=== PATIENT | male | born 1980 | race Caucasian/White ===

== ENCOUNTER 2024-04-09 07:20 | Inpatient (IN) | payer OTHER ==
[~2024-04-09] VITALS: Ht 170.2 cm; Wt 101.2 kg
[2024-04-09] MEDS: normal saline 1000ML IV soln IVB ONE ×2 (09:19→10:46)
[2024-04-09 10:42] LABS: BASOPHILS # (AUTO) 0.1 X10'3 (0-0.2); BASOPHILS % (AUTO) 0.4 % (0-1); EOSINOPHILS % (AUTO) 0 % (0-6); HEMATOCRIT 40.1 % (42.0-52.0); HEMOGLOBIN 13.2 g/dl (14.0-17.9); LYMPHOCYTES # (AUTO) 1.6 X10'3 (1.1-4.8); LYMPHOCYTES % (AUTO) 10.1 % (21-51); MEAN CORPUSCULAR HEMOGLOBIN 26.8 PG (27.0-31.0); MEAN CORPUSCULAR VOLUME 81.2 FL (78-98); MEAN PLATELET VOLUME 8.9 FL (7.4-10.4); MONOCYTES # (AUTO) 1.2 X10'3 (0-0.9); NEUTROPHILS # (AUTO) 12.6 X10'3 (1.8-7.7); NEUTROPHILS % (AUTO) 81.5 % (42-75); PLATELET COUNT 117 X10'3 (140-440); RED BLOOD COUNT 4.94 X10'6 (4.70-6.10); RED CELL DISTRIBUTION WIDTH 19.9 % (11.5-14.5); WHITE BLOOD COUNT 15.5 X10'3 (4.5-11.0)
[2024-04-09] MEDS: cloNIDine 0.1 mg tablet PO ONE (10:47)
[2024-04-09] MEDS: chlordiazePOXIDE 25mg capsule PO ONE (10:47)
[2024-04-09] MEDS: magnesium oxide 400mg tablet PO ONE (10:47)
[2024-04-09 10:59] LABS: ALANINE AMINOTRANSFERASE 143 U/L (12-78); ALBUMIN 2.8 G/DL (3.4-5.0); ALBUMIN/GLOBULIN RATIO 0.6 (1.1-1.5); ALKALINE PHOSPHATASE 152 IU/L (46-116); ANION GAP 18 (8-16); ASPARTATE AMINO TRANSFERASE 241 U/L (10-37); BILIRUBIN,DIRECT 0.5 MG/DL (0-0.3); BILIRUBIN,TOTAL 1.1 MG/DL (0.1-1.0); BLOOD UREA NITROGEN 19 MG/DL (7-18); BUN/CREATININE RATIO 17.3 (10.0-20.0); CALCIUM 7.8 MG/DL (8.5-10.1); CHLORIDE 100 MMOL/L (99-107); ETHANOL 141 MG/DL (<10); GLUCOSE 97 MG/DL (70-104); LIPASE 288 U/L (16-77); MAGNESIUM 2.1 MG/DL (1.5-2.4); POTASSIUM 3.5 MMOL/L (3.5-5.1); SODIUM 138 MMOL/L (135-145); TOTAL CARBON DIOXIDE 20.2 MMOL/L (24-32); TOTAL PROTEIN 7.6 G/DL (6.4-8.2); eCRCL 80 ML/MIN; eGFR 73 ML/MIN
[2024-04-09] MEDS: D5-1/2NS w/20 mEq potassium per 1000ml IV ONE (12:10)
[2024-04-09] MEDS ORDERED: potassium Cl 40MEQ/1/2NS 520ml 520 ML IV PRN (13:05)
[2024-04-09] MEDS ORDERED: magnesium sulf-water 2g/50mL 50 ML IV PRN (13:05)
[2024-04-09] MEDS ORDERED: magnesium Cl slow-release 64mg tablet PO PRN (13:05)
[2024-04-09] MEDS: normal saline 1000ml 1,000 ML IV SCH (13:05)
[2024-04-09] MEDS ORDERED: magnesium sulf-water 4G/100mL 100 ML IV PRN (13:05)
[2024-04-09] MEDS ORDERED: ondansetron/PF 4mg/2ml inj IV PRN (13:05)
[2024-04-09] MEDS ORDERED: magnesium hydroxide 30ml (MOM) UD suspension PO PRN (13:05)
[2024-04-09] MEDS ORDERED: acetaminophen 325mg tablet PO PRN (13:05)
[2024-04-09] MEDS ORDERED: mag hydrox/Alum hydrox/simeth 30ml oral suspension PO PRN (13:05)
[2024-04-09] MEDS ORDERED: haloperidol lactate 5mg/ml inj IM PRN (13:15)
[2024-04-09] MEDS ORDERED: haloperidol 5mg tablet PO PRN (13:15)
[2024-04-09 13:34] LABS: APTT 27 SECONDS (22-32); PROTHROMBIN TIME 10.2 SECONDS (9.0-12.0)
[2024-04-09 13:41] LABS: PHOSPHORUS 1.5 MG/DL (2.3-4.5); PRO BRAIN NATRIURETIC PEPTIDE 240 PG/ML (0-125)
[2024-04-09] MEDS: K and/or MAG REPLACEMENT MC SCH (14:09)
[2024-04-09 17:00] VITALS: RESP 16; O2SAT 96
[2024-04-09] MEDS: pantoprazole 40mg Tablet.DR PO SCH (17:03)
[2024-04-09] MEDS ORDERED: NO HOME MEDS (17:13)
[2024-04-09] MEDS: LORazepam 2 mg/ml vial IV PRN (17:15)
[2024-04-09 18:30] VITALS: BP 129/94; PULSE 113; RESP 18; TEMP 98.1; O2SAT 96
[2024-04-09] MEDS: thiamine 100mg/ml 2ml inj. IV SCH (21:37)
[2024-04-10 04:05] LABS: BASOPHILS % (AUTO) 0.2 % (0-1); EOSINOPHILS % (AUTO) 0.3 % (0-6); HEMATOCRIT 34.4 % (42.0-52.0); HEMOGLOBIN 11.2 g/dl (14.0-17.9); LYMPHOCYTES # (AUTO) 1.2 X10'3 (1.1-4.8); LYMPHOCYTES % (AUTO) 10.1 % (21-51); MEAN CORPUSCULAR HEMOGLOBIN 26.4 PG (27.0-31.0); MEAN CORPUSCULAR HGB CONC 32.4 g/dL (33.0-36.5); MEAN CORPUSCULAR VOLUME 81.4 FL (78-98); MEAN PLATELET VOLUME 9.2 FL (7.4-10.4); MONOCYTES # (AUTO) 0.8 X10'3 (0-0.9); MONOCYTES % (AUTO) 6.4 % (2-12); NEUTROPHILS # (AUTO) 9.8 X10'3 (1.8-7.7); PLATELET COUNT 85 X10'3 (140-440); RED BLOOD COUNT 4.23 X10'6 (4.70-6.10); RED CELL DISTRIBUTION WIDTH 19.5 % (11.5-14.5); WHITE BLOOD COUNT 11.8 X10'3 (4.5-11.0)
[2024-04-10 04:21] LABS: ANISOCYTOSIS 2+; ELLIPTOCYTES FEW; PLATELET ESTIMATE DECREASED
[2024-04-10 04:29] LABS: ALANINE AMINOTRANSFERASE 101 U/L (12-78); ALBUMIN 2.3 G/DL (3.4-5.0); ALBUMIN/GLOBULIN RATIO 0.6 (1.1-1.5); ALKALINE PHOSPHATASE 131 IU/L (46-116); AMYLASE 313 U/L (25-115); ANION GAP 10 (8-16); ASPARTATE AMINO TRANSFERASE 156 U/L (10-37); BILIRUBIN,TOTAL 0.8 MG/DL (0.1-1.0); BLOOD UREA NITROGEN 13 MG/DL (7-18); BUN/CREATININE RATIO 15.1 (10.0-20.0); CALCIUM 7.5 MG/DL (8.5-10.1); CHLORIDE 104 MMOL/L (99-107); CREATININE 0.86 MG/DL (0.60-1.10); GLUCOSE 91 MG/DL (70-104); MAGNESIUM 2.2 MG/DL (1.5-2.4); POTASSIUM 3.4 MMOL/L (3.5-5.1); SODIUM 137 MMOL/L (135-145); TOTAL CARBON DIOXIDE 23.3 MMOL/L (24-32); eCRCL 102 ML/MIN; eGFR > 90 ML/MIN
[2024-04-10 04:50] LABS: LIPASE > 375 U/L (16-77)
[2024-04-10 04:54] LABS: PHOSPHORUS 1.1 MG/DL (2.3-4.5)
[2024-04-10] MEDS: potassium phosphate inj 30 MMOL in normal saline 250ml IV soln 250 ML IV ONE (05:00)
[2024-04-10 06:00] VITALS: BP 157/95; PULSE 95; RESP 18; TEMP 98.8; O2SAT 99
[2024-04-10] MEDS: folic acid 1mg/0.2ml inj IV SCH (07:48)
[2024-04-10] MEDS: multivitamins, therapeutics tablet PO SCH (07:48)
[2024-04-10 08:00] VITALS: RESP 18; O2SAT 99
[2024-04-10] MEDS ORDERED: chlordiazePOXIDE 5mg capsule PO PRN (12:05)
[2024-04-10] MEDS: normal saline 1000ml 1,000 ML IVB ONE (13:26)
[2024-04-10] MEDS: dextrose 5%-normal saline 1,000 ML IV SCH (13:49)
[2024-04-10] MEDS: chlordiazePOXIDE 5mg capsule PO SCH (13:49)
[2024-04-10] MEDS ORDERED: iohexol 300mg/ml 100ml inj. ONE (13:54)
[2024-04-10] MEDS ORDERED: sodium phosphate inj. 30 MMOL in dextrose 5%-water 250 ML IV PRN (14:25)
[2024-04-10] MEDS ORDERED: sodium phosphate inj. 15 MMOL in dextrose 5%-water 250 ML IV PRN (14:25)
[2024-04-10] MEDS ORDERED: Neutra Phos packet PO PRN (14:25)
[2024-04-10] MEDS: normal saline 1000ml 1,000 ML IV ONE (15:37)
[2024-04-10 18:00] VITALS: BP 140/92; PULSE 99; RESP 18; TEMP 99.7; O2SAT 96
[2024-04-10 20:20] VITALS: RESP 18
[2024-04-10] MEDS ORDERED: diatr meglu/diatrizoate 30ml oral sol.-(3 dose) bottle PO SCH (21:00)
[2024-04-10 22:00] VITALS: BP 149/107; PULSE 98; RESP 18; TEMP 98.8; O2SAT 98
[2024-04-11] VITALS (7 sets, daily range): BP systolic 93–158; BP diastolic 52–109; PULSE 67–100; RESP 13–20; TEMP 97.4–98.3; O2SAT 95–98
[2024-04-11 04:32] LABS: BASOPHILS % (AUTO) 0.2 % (0-1); EOSINOPHILS # (AUTO) 0.1 X10'3 (0-0.9); EOSINOPHILS % (AUTO) 1.4 % (0-6); HEMATOCRIT 36.2 % (42.0-52.0); HEMOGLOBIN 11.9 g/dl (14.0-17.9); LYMPHOCYTES # (AUTO) 1.3 X10'3 (1.1-4.8); LYMPHOCYTES % (AUTO) 14.8 % (21-51); MEAN CORPUSCULAR HGB CONC 32.8 g/dL (33.0-36.5); MEAN CORPUSCULAR VOLUME 82.2 FL (78-98); MEAN PLATELET VOLUME 9.4 FL (7.4-10.4); MONOCYTES # (AUTO) 0.6 X10'3 (0-0.9); MONOCYTES % (AUTO) 6.7 % (2-12); NEUTROPHILS # (AUTO) 6.9 X10'3 (1.8-7.7); NEUTROPHILS % (AUTO) 76.9 % (42-75); PLATELET COUNT 82 X10'3 (140-440); RED BLOOD COUNT 4.41 X10'6 (4.70-6.10); RED CELL DISTRIBUTION WIDTH 19.7 % (11.5-14.5); WHITE BLOOD COUNT 8.9 X10'3 (4.5-11.0)
[2024-04-11 04:40] LABS: PROTHROMBIN TIME 10.3 SECONDS (9.0-12.0)
[2024-04-11 04:54] LABS: ALANINE AMINOTRANSFERASE 88 U/L (12-78); ALBUMIN 2.3 G/DL (3.4-5.0); ALBUMIN/GLOBULIN RATIO 0.6 (1.1-1.5); ALKALINE PHOSPHATASE 121 IU/L (46-116); AMYLASE 451 U/L (25-115); ANION GAP 8 (8-16); ASPARTATE AMINO TRANSFERASE 89 U/L (10-37); BILIRUBIN,TOTAL 0.7 MG/DL (0.1-1.0); BLOOD UREA NITROGEN 4 MG/DL (7-18); BUN/CREATININE RATIO 6.3 (10.0-20.0); CALCIUM 7.7 MG/DL (8.5-10.1); CHLORIDE 106 MMOL/L (99-107); CREATININE 0.63 MG/DL (0.60-1.10); GLUCOSE 118 MG/DL (70-104); PHOSPHORUS 2.1 MG/DL (2.3-4.5); SODIUM 140 MMOL/L (135-145); TOTAL CARBON DIOXIDE 25.7 MMOL/L (24-32); TOTAL PROTEIN 6.2 G/DL (6.4-8.2); eCRCL 140 ML/MIN; eGFR > 90 ML/MIN
[2024-04-11 04:57] LABS: POTASSIUM 2.8 MMOL/L (3.5-5.1)
[2024-04-11] MEDS: potassium Cl 20 mEq SR tablet PO PRN ×2 (05:19→23:48)
[2024-04-11 05:57] LABS: LIPASE > 375 U/L (16-77)
[2024-04-11] MEDS: POTASSIUM BICARB 20meq eff tab 20 MEQ TABLET.EFF PO SCH (13:00)
[2024-04-11] MEDS ORDERED: LORazepam 2 mg/ml vial IV PRN (13:15)
[2024-04-11] MEDS: LORazepam 1 MG tablet PO PRN (20:05)
[2024-04-12 04:11] LABS: BASOPHILS % (AUTO) 0.5 % (0-1); EOSINOPHILS # (AUTO) 0.2 X10'3 (0-0.9); EOSINOPHILS % (AUTO) 2.6 % (0-6); HEMATOCRIT 37.2 % (42.0-52.0); HEMOGLOBIN 12.2 g/dl (14.0-17.9); LYMPHOCYTES # (AUTO) 1.6 X10'3 (1.1-4.8); LYMPHOCYTES % (AUTO) 18.6 % (21-51); MEAN CORPUSCULAR HEMOGLOBIN 27.3 PG (27.0-31.0); MEAN CORPUSCULAR HGB CONC 32.9 g/dL (33.0-36.5); MEAN CORPUSCULAR VOLUME 83.1 FL (78-98); MEAN PLATELET VOLUME 8.9 FL (7.4-10.4); MONOCYTES # (AUTO) 0.7 X10'3 (0-0.9); MONOCYTES % (AUTO) 8.6 % (2-12); NEUTROPHILS # (AUTO) 5.8 X10'3 (1.8-7.7); NEUTROPHILS % (AUTO) 69.7 % (42-75); PLATELET COUNT 106 X10'3 (140-440); RED BLOOD COUNT 4.47 X10'6 (4.70-6.10); RED CELL DISTRIBUTION WIDTH 19.9 % (11.5-14.5); WHITE BLOOD COUNT 8.3 X10'3 (4.5-11.0)
[2024-04-12 04:22] LABS: PROTHROMBIN TIME 10.4 SECONDS (9.0-12.0)
[2024-04-12 04:28] LABS: ALANINE AMINOTRANSFERASE 85 U/L (12-78); ALBUMIN 2.4 G/DL (3.4-5.0); ALBUMIN/GLOBULIN RATIO 0.6 (1.1-1.5); ALKALINE PHOSPHATASE 109 IU/L (46-116); AMYLASE 441 U/L (25-115); ANION GAP 5 (8-16); ASPARTATE AMINO TRANSFERASE 65 U/L (10-37); BILIRUBIN,TOTAL 0.5 MG/DL (0.1-1.0); BLOOD UREA NITROGEN 2 MG/DL (7-18); BUN/CREATININE RATIO 2.6 (10.0-20.0); CALCIUM 8.4 MG/DL (8.5-10.1); CHLORIDE 108 MMOL/L (99-107); CREATININE 0.77 MG/DL (0.60-1.10); GLUCOSE 136 MG/DL (70-104); MAGNESIUM 1.8 MG/DL (1.5-2.4); PHOSPHORUS 2.9 MG/DL (2.3-4.5); POTASSIUM 3.5 MMOL/L (3.5-5.1); SODIUM 140 MMOL/L (135-145); TOTAL CARBON DIOXIDE 27.2 MMOL/L (24-32); TOTAL PROTEIN 6.4 G/DL (6.4-8.2); eCRCL 114 ML/MIN; eGFR > 90 ML/MIN
[2024-04-12 04:44] LABS: LIPASE > 375 U/L (16-77)
[2024-04-12 06:00] VITALS: BP 147/91; PULSE 91; RESP 13; TEMP 98.7; O2SAT 97
[2024-04-12 06:46] LABS: C DIFF ANTIGEN NEGATIVE (NEGATIVE); C DIFF SPECIMEN=DIARRHEA? ACCEPTABLE; C DIFFICILE TOXINS A&B NEGATIVE (Neg)
[2024-04-12 08:50] VITALS: RESP 16
[2024-04-12 10:00] VITALS: BP 149/104; PULSE 88; RESP 13; TEMP 98.5; O2SAT 96
[2024-04-12 12:51] LABS: BILIRUBIN,URINE NEGATIVE (Neg); CLARITY,URINE CLEAR (Clear); COLOR,URINE YELLOW (Yellow); GLUCOSE, URINE NEGATIVE (Neg); KETONES,URINE NEGATIVE (Neg); LEUKOCYTE ESTERASE ,URINE NEGATIVE (Neg); NITRITES, URINE NEGATIVE (Neg); OCCULT BLOOD,URINE NEGATIVE (Neg); PROTEIN,URINE NEGATIVE (Neg); UROBILINOGEN,URINE 0.2 E.U/dL (0.2-1.0)
[2024-04-12 12:58] LABS: UA COLLECTION TYPE CLN CATCH MIDSTREAM
[2024-04-12 13:10] LABS: URINE AMPHETAMINE SCREEN NEGATIVE (Neg); URINE BARBITUATE SCREEN NEGATIVE (Neg); URINE BENZODIAZEPINES SCREEN POSITIVE (Neg); URINE CANNABINOID SCREEN NEGATIVE (Neg); URINE COCAINE SCREEN NEGATIVE (Neg); URINE METHADONE SCREEN NEGATIVE (Neg); URINE OPIATE SCREEN NEGATIVE (Neg); URINE PHENCYCLIDINE SCREEN NEGATIVE (Neg)
[2024-04-12 18:00] VITALS: BP 155/112; PULSE 115; RESP 18; TEMP 98.7; O2SAT 100
[2024-04-12] MEDS: amLODIPine 5mg tablet PO ONE (18:57)
[2024-04-12 20:00] VITALS: RESP 16
[2024-04-12 22:00] VITALS: BP 150/111; PULSE 103; RESP 18; TEMP 97.6; O2SAT 99
[2024-04-12] MEDS: hydrALAZINE 20mg/ml inj. IV PRN (23:09)
[2024-04-13] VITALS (7 sets, daily range): BP systolic 129–162; BP diastolic 90–119; PULSE 92–107; RESP 16–20; TEMP 97.9–98.1; O2SAT 99–100
[2024-04-13 04:59] LABS: BASOPHILS # (AUTO) 0.1 X10'3 (0-0.2); BASOPHILS % (AUTO) 0.7 % (0-1); EOSINOPHILS # (AUTO) 0.2 X10'3 (0-0.9); EOSINOPHILS % (AUTO) 3.1 % (0-6); HEMATOCRIT 38.1 % (42.0-52.0); HEMOGLOBIN 12.4 g/dl (14.0-17.9); LYMPHOCYTES # (AUTO) 1.8 X10'3 (1.1-4.8); LYMPHOCYTES % (AUTO) 23.3 % (21-51); MEAN CORPUSCULAR HEMOGLOBIN 27.3 PG (27.0-31.0); MEAN CORPUSCULAR HGB CONC 32.4 g/dL (33.0-36.5); MEAN CORPUSCULAR VOLUME 84.2 FL (78-98); MEAN PLATELET VOLUME 8.5 FL (7.4-10.4); MONOCYTES # (AUTO) 0.8 X10'3 (0-0.9); MONOCYTES % (AUTO) 10.7 % (2-12); NEUTROPHILS # (AUTO) 4.8 X10'3 (1.8-7.7); NEUTROPHILS % (AUTO) 62.2 % (42-75); PLATELET COUNT 175 X10'3 (140-440); RED BLOOD COUNT 4.53 X10'6 (4.70-6.10); RED CELL DISTRIBUTION WIDTH 19.8 % (11.5-14.5); WHITE BLOOD COUNT 7.7 X10'3 (4.5-11.0)
[2024-04-13 05:08] LABS: PROTHROMBIN TIME 10.7 SECONDS (9.0-12.0)
[2024-04-13 05:18] LABS: ALANINE AMINOTRANSFERASE 88 U/L (12-78); ALBUMIN 2.5 G/DL (3.4-5.0); ALBUMIN/GLOBULIN RATIO 0.6 (1.1-1.5); ALKALINE PHOSPHATASE 99 IU/L (46-116); AMYLASE 417 U/L (25-115); ANION GAP 8 (8-16); ASPARTATE AMINO TRANSFERASE 66 U/L (10-37); BILIRUBIN,TOTAL 0.4 MG/DL (0.1-1.0); BLOOD UREA NITROGEN 0 MG/DL (7-18); CALCIUM 8.6 MG/DL (8.5-10.1); CHLORIDE 107 MMOL/L (99-107); CREATININE 0.78 MG/DL (0.60-1.10); GLUCOSE 114 MG/DL (70-104); MAGNESIUM 1.6 MG/DL (1.5-2.4); PHOSPHORUS 3.3 MG/DL (2.3-4.5); POTASSIUM 3.4 MMOL/L (3.5-5.1); SODIUM 141 MMOL/L (135-145); TOTAL CARBON DIOXIDE 25.8 MMOL/L (24-32); TOTAL PROTEIN 6.5 G/DL (6.4-8.2); eCRCL 113 ML/MIN; eGFR > 90 ML/MIN
[2024-04-13 05:29] LABS: LIPASE > 375 U/L (16-77)
[2024-04-13] MEDS: thiamine 100mg tablet PO SCH (07:25)
[2024-04-13] MEDS ORDERED: magnesium sulf-water 4G/100mL 100 ML IV PRN (08:30)
[2024-04-13] MEDS ORDERED: potassium Cl 20 mEq SR tablet PO PRN (08:30)
[2024-04-13] MEDS ORDERED: magnesium sulf-water 2g/50mL 50 ML IV PRN (08:30)
[2024-04-13] MEDS ORDERED: potassium Cl 40MEQ/1/2NS 520ml 520 ML IV PRN (08:30)
[2024-04-13] MEDS ORDERED: magnesium Cl slow-release 64mg tablet PO PRN (08:30)
[2024-04-13] MEDS: potassium Cl 20 mEq SR tablet PO PRN (09:10)
[2024-04-13] MEDS: folic acid 1mg tablet PO SCH (09:10)
[2024-04-13] MEDS: amLODIPine 5mg tablet PO SCH (09:10)
[2024-04-13] MEDS ORDERED: LORazepam 2 mg/ml vial IV PRN (13:15)
[2024-04-13] MEDS: LORazepam 1 MG tablet PO PRN (21:56)
[2024-04-13] MEDS: amLODIPine 5mg tablet PO ONE (21:56)
[2024-04-14 05:47] LABS: PROTHROMBIN TIME 10.7 SECONDS (9.0-12.0)
[2024-04-14 06:00] VITALS: BP 125/94; PULSE 84; RESP 14; TEMP 97.6; O2SAT 99
[2024-04-14 06:02] LABS: ALANINE AMINOTRANSFERASE 98 U/L (12-78); ALBUMIN 2.6 G/DL (3.4-5.0); ALBUMIN/GLOBULIN RATIO 0.7 (1.1-1.5); ALKALINE PHOSPHATASE 92 IU/L (46-116); AMYLASE 413 U/L (25-115); ANION GAP 8 (8-16); ASPARTATE AMINO TRANSFERASE 65 U/L (10-37); BILIRUBIN,TOTAL 0.3 MG/DL (0.1-1.0); BLOOD UREA NITROGEN 1 MG/DL (7-18); BUN/CREATININE RATIO 1.2 (10.0-20.0); CALCIUM 8.9 MG/DL (8.5-10.1); CHLORIDE 109 MMOL/L (99-107); CREATININE 0.81 MG/DL (0.60-1.10); GLUCOSE 114 MG/DL (70-104); LIPASE 348 U/L (16-77); PHOSPHORUS 3.6 MG/DL (2.3-4.5); POTASSIUM 3.6 MMOL/L (3.5-5.1); SODIUM 144 MMOL/L (135-145); TOTAL CARBON DIOXIDE 27.4 MMOL/L (24-32); TOTAL PROTEIN 6.6 G/DL (6.4-8.2); eCRCL 109 ML/MIN; eGFR > 90 ML/MIN
[2024-04-14 06:20] LABS: BASOPHILS % (AUTO) 0.7 % (0-1); EOSINOPHILS # (AUTO) 0.3 X10'3 (0-0.9); EOSINOPHILS % (AUTO) 4.2 % (0-6); HEMOGLOBIN 12.7 g/dl (14.0-17.9); LYMPHOCYTES # (AUTO) 1.9 X10'3 (1.1-4.8); LYMPHOCYTES % (AUTO) 28.2 % (21-51); MEAN CORPUSCULAR HEMOGLOBIN 27.5 PG (27.0-31.0); MEAN CORPUSCULAR HGB CONC 32.6 g/dL (33.0-36.5); MEAN CORPUSCULAR VOLUME 84.4 FL (78-98); MEAN PLATELET VOLUME 8.4 FL (7.4-10.4); MONOCYTES # (AUTO) 0.8 X10'3 (0-0.9); MONOCYTES % (AUTO) 12.8 % (2-12); NEUTROPHILS # (AUTO) 3.6 X10'3 (1.8-7.7); NEUTROPHILS % (AUTO) 54.1 % (42-75); PLATELET COUNT 234 X10'3 (140-440); RED BLOOD COUNT 4.61 X10'6 (4.70-6.10); RED CELL DISTRIBUTION WIDTH 19.7 % (11.5-14.5); WHITE BLOOD COUNT 6.6 X10'3 (4.5-11.0)
[2024-04-14] MEDS: amLODIPine 5mg tablet PO SCH (07:28)
[2024-04-14 08:31] VITALS: RESP 18; O2SAT 98
[2024-04-14 10:00] VITALS: BP 132/86; PULSE 83; RESP 16; TEMP 98.7; O2SAT 98
[2024-04-14] MEDS ORDERED: CHLO25CA10 PO (14:02)
[2024-04-14] MEDS ORDERED: NOR5T PO (15:03)
[2024-04-14] MEDS ORDERED: thiamine tablet PO (15:03)
[2024-04-14] MEDS ORDERED: MULT-25 PO (15:03)
[2024-04-14] MEDS ORDERED: POTA-206 PO (15:03)
[2024-04-14] MEDS ORDERED: FOLI1TAB27 PO (15:03)
== END 2024-04-14 16:05 | disposition home or self-care (01) | DRG 282 ==
LOC: ER 07:21 → ED HOLD 13:15 → EDBEDREQ 15:58 → SUR 3N 16:32
PROVIDERS: ADMIT Family Medicine; ATTEND Family Medicine
DX: K85.20 Alcohol induced acute pancreatitis without necrosis or infection (principal); R65.11 Systemic inflammatory response syndrome (SIRS) of non-infectious origin with acute organ dysfunction; D69.6 Thrombocytopenia, unspecified; E87.20 Acidosis, unspecified; E83.39 Other disorders of phosphorus metabolism; E83.51 Hypocalcemia; R74.01 Elevation of levels of liver transaminase levels; D72.828 Other elevated white blood cell count; E88.09 Other disorders of plasma-protein metabolism, not elsewhere classified; K76.0 Fatty (change of) liver, not elsewhere classified; D50.9 Iron deficiency anemia, unspecified; E87.6 Hypokalemia; F10.232 Alcohol dependence with withdrawal with perceptual disturbance; Z87.11 Personal history of peptic ulcer disease
CPT/HCPCS: 36415; 74177; 80048; 80053; 80076; 80305; 80320; 81003; 82150; 82948; 83690; 83735; 83880; 84100; 84132; 85008; 85025; 85610; 85730; 87081; 87324; 87449; 93005; 97161; 97530; 99285; G0378; J0360; J2060; J3411; J3480; J3490; J7030; J7042; J7050; J7120; Q9967